=== PATIENT | male | born 1960 | race Two or more races ===

== ENCOUNTER 2022-06-25 07:39 | Emergency (ER) | payer OTHER ==
[~2022-06-25] VITALS: Ht 177.8 cm; Wt 134.0 kg
[2022-06-25] MEDS ORDERED: ONDANSETRON ODT 4 MG TAB PO ONE (14:15)
[2022-06-25] MEDS ORDERED: MORPHINE SULFATE 4 MG/ML SYR/VIAL IM ONE (14:15)
[2022-06-25 15:33] VITALS: BP 154/76
[2022-06-25] MEDS ORDERED: LIDO5PAD8 EX (15:33)
[2022-06-25] MEDS ORDERED: CYCL-839 PO (15:33)
[2022-06-25] MEDS ORDERED: IBUP600T28 PO (15:34)
[2022-06-25] MEDS ORDERED: HYDROcodone-ACET 5/325MG TAB PO ONE (15:45)
== END 2022-06-25 16:08 | disposition home or self-care (01) ==
LOC: ER 07:39
DX: M54.42 Lumbago with sciatica, left side (principal); Z79.1 Long term (current) use of non-steroidal anti-inflammatories (NSAID); Z79.899 Other long term (current) drug therapy
CPT/HCPCS: 72131; 96372; 99285; J2270; Q0162